=== PATIENT | female | born 1995 | race Caucasian/White ===

== ENCOUNTER 2023-04-22 17:17 | Emergency (ER) | payer MEDICAID, SELFPAY ==
[2023-04-22 17:37] VITALS: BP 126/86; PULSE 87; RESP 16; TEMP 36.7; O2SAT 100; BMI 25.8
[2023-04-22 19:48] VITALS: BP 121/89; PULSE 81; RESP 18; TEMP 36.4; O2SAT 100
--- NOTE | 2023-04-22 21:19 | ED.GENADULT ---
HPI - General Adult General Chief complaint: Head Injury/Pain Stated complaint: Fell and hit head at work Time Seen by Provider: 04/22/23 20:55 History of Present Illness HPI narrative: This 27-year-old female comes in reporting recurrent symptoms of vertigo. Today she became vertiginous and leaned into a door hitting the left side of her head. She did not have loss of consciousness and does not report a significant headache. She does have recurrent vertigo symptoms over the past year and has had CT imaging with normal results. She has been taking meclizine without much relief and does get some benefit from Reglan. She has not been to an family protection specialist. She does not report headaches. Her vertigo symptoms are generally relieved when remaining still. She does report some episodes of hearing changes unilaterally related to vertigo. Related Data Previous Rx's Medication Instructions Recorded triamterene 37.5 1 cap PO DAILY #20 caps 04/22/23 mg-hydrochlorothiazide 25 mg capsule Allergies Allergy/AdvReac Type Severity Reaction Status Date / Time amoxicillin AdvReac Severe Rash Verified 04/22/23 17:42 prochlorperazine AdvReac Severe Agitated Verified 04/22/23 17:42 [From Compazine] Review of Systems Status of ROS: Reports: 10 or more systems reviewed and unremarkable except as noted in History and below Narrative: Constitutional: No fevers, no weight gain or loss. Eyes: No discharge. No vision changes. HENT: No congestion, no sore throat, no ear pain. Cardiovascular: No chest pain, no palpitations. Respiratory: No shortness of breath, no wheezes, no cough. Gastrointestinal: No abdominal pain, no vomiting, no diarrhea. Genitourinary: No dysuria, no hematuria. Musculoskeletal: Normal range of motion. Skin: No rashes, no pruritis. Neurological: Vertigo symptoms with associated nausea. Some tinnitus and hearing changes occasionally. Endo/Heme/Allergies: No bruising or bleeding. No polydipsia. Pysch: no suicidality, no anxiety, no insomnia. All other systems reviewed and are negative. Exam Narrative: Exam Narrative: Constitutional: Well-developed, well-nourished, no acute distress. HEENT: Normocephalic, atraumatic. Neck: Normal range of motion. Nontender. Supple. Heart: Intact distal pulses. Lungs: No chest discomfort. No wheezes, rhonchi, or rales. Abdomen: Nontender. Back: Normal range of motion. Extremities: Normal range of motion. No injury. Skin: Intact. No rash. Warm. No erythema or pallor. Neurologic: No altered sensation. No weakness. Alert and oriented. Psychiatric: No suicidality. No anxiety or depression. No insomnia. Nursing notes and vitals signs are reviewed. Const: Vital Signs, click to edit/add: Vital Signs - 24 hr 04/22/23 17:37 04/22/23 19:48 Temperature 98.0 F 97.5 F L Pulse Rate [Right Pulse Oximeter] 87 81 Respiratory Rate 16 18 Blood Pressure [Ri t Upper Arm] 126/86 121/89 Pulse Oximetry 100 100 Oxygen Delivery Me thod Room Air Room Air Course Vital Signs Vital signs: Initial Vital Signs Temperature 98.0 F 04/22/23 17:37 Temperature Source Temporal Artery Scan 04/22/23 17:37 Pulse Rate 87 04/22/23 17:37 Pulse Rhythm Regular 04/22/23 17:37 Pulse Strength 3+ Normal 04/22/23 17:37 Respiratory Rate 16 04/22/23 17:37 Blood Pressure 126/86 04/22/23 17:37 Blood Pressure Mean 99 04/22/23 17:37 Blood Pressure Position Sitting 04/22/23 17:37 Pulse Oximetry 100 04/22/23 17:37 Oxygen Delivery Method Room Air 04/22/23 17:37 Vital Signs Temperature 98.0 F 04/22/23 17:37 Pulse Rate 87 04/22/23 17:37 Respiratory Rate 16 04/22/23 17:37 Blood Pressure 126/86 04/22/23 17:37 Pulse Oximetry 100 04/22/23 17:37 Oxygen Delivery Method Room Air 04/22/23 17:37 Temperature 97.5 F L 04/22/23 19:48 Pulse Rate 81 04/22/23 19:48 Respiratory Rate 18 04/22/23 19:48 Blood Pressure 121/89 04/22/23 19:48 Pulse Oximetry 100 04/22/23 19:48 Oxygen Delivery Method Room Air 04/22/23 19:48 Medical Decision Making MDM Narrative Medical decision making narrative: This patient has recurrent vertigo symptoms with occasions of associated tinnitus or hearing changes. This is suspicious for Meniere's disease. She has had CT imaging of her head with normal results. She also has been taking meclizine without much relief and does benefit from Reglan. She states that she always seems to feel better when getting IV fluids. She understands that the diagnosis of vertigo is a clinical diagnosis and that we do not have test that can show or clarify vertigo symptoms more specifically. She is not showing any signs of central vertigo process as she does not have any neurologic deficits suspicious of a stroke. I did advise her to follow-up with [facility] with regard to possibility of Meniere's disease. I did also discuss some treatment options that can be tried for Meniere's disease including a diuretic. The patient did receive an IV and this included 1 L of normal saline and dexamethasone 10 mg. I did provide a prescription for low-dose hydrochlorothiazide triamterene. Discharge Plan Discharge Clinical Impression: Closed head injury, Vertigo Patient Disposition: Home w/ Parent or Adult Condition: Stable Additional Instructions: Take medication as directed. [facility] for further evaluation and treatment. Return if worsening. Prescriptions: New triamterene-hydrochlorothiazid 37.5-25 mg capsule 1 cap PO DAILY Qty: 20 2RF Follow Up/Referrals: Provider,Not a Local [Primary Care Provider] - Stand Alone Forms: [employer] Info Instructions
[2023-04-22] MEDS: dexAMETHasone 4 MG/ML VIAL 10 MG IV (21:39)
[2023-04-22] MEDS: 0.9 % SODIUM CHLORIDE 1000 ml 1,000 ML IV (21:39)
[2023-04-22] MEDS: METOCLOPRAMIDE HCL 5 MG/ML INJ 10 MG IV (21:39)
[2023-04-22 21:48] VITALS: BP 118/82; PULSE 69; RESP 18; O2SAT 100
[2023-04-22 22:35] VITALS: BP 123/87; PULSE 82; RESP 18; O2SAT 100
== END 2023-04-22 22:36 | disposition home or self-care (01) ==
PROVIDERS: Emergency Provider Emergency Medicine Emergency Medical Services
DX: S09.90XA Unspecified injury of head, initial encounter (principal); R42 Dizziness and giddiness
CPT/HCPCS: 96374; 96375; 99284; J1100; J2765; J7030